=== PATIENT | female | born 1990 | race Caucasian/White ===

== ENCOUNTER → 2016-06-28 | Outpatient (CLI) | payer BC ==
[~2016-06-28] VITALS: Ht 157.5 cm; Wt 54.7 kg
[~2016-06-28] MED LIST: ACETAMINOPHEN325 M1 PO; ALPRAZOLAM 0.50.5 MG PO; AMBIEN 10 MG TA10 MG PO; AMITRIPTYLINE H25 M2 PO; B12INJ IM; BACLOFEN 10MG T10 M1 PO; BACLOFEN 10MG T10 MG PO; BACTRIM 400-801 EACH PO; BACTRIM DS TAB1 EACH PO; BENADRYL25 MG PO; BENTYL 10 MG CA10 M1 PO; BENTYL PO; BENTYL10 MG PO; BUPROPION PO; BUTRANS1 EAC1 TD; CARISOPRODOL 3350 MG PO; CARISOPRODOL350 MG PO; CATAPRES0.1 MG PO; CIMZIA400 MG/2 M SQ; CIPROFLOXACIN500 M1 PO; CIPROFLOXACIN500 M3 PO; COLESTID1 GM PO; COMPAZINE10 M1 PO; CYPROHEPTADINE 44 MG PO; DAZIDOX10 MG PO; DEXILANT30 MG PO; DIPHENHYDRAMINE50 MG PO; ELAVIL PO; ENOXAPARIN30 MG/0.3 SUBQ; FENTANYL 1100 MCG/HR TP; FENTANYL PA25 MCG/HR TD; FENTANYL PA50 MCG/HR TOP; FLAGYL375 MG; FLEXERIL PO; FOLIC ACID 40400 MCG PO; GABAPENTIN PO; GABAPENTIN100 MG PO; GREEN TEA1 EACH PO; HUMIRA40 MG/0.8 IJ; HYDROCODONE-AP1 EAC6 PO; HYDROXYZINE HCL50 MG; HYDROXYZINE HCL50 MG PO; HYOSCYAMINE0.375 M2 PO; IBUPROFEN 600600 M1 PO; IBUPROFEN 800800 M1; JOLESSA1 EACH PO; LASIX 20 MG TAB20 MG PO; LEVONORGESTREL1 EAC1 PO; LIDODERM 5%1 PATCH TOP; LOPERAMIDE 2 MG2 M1 PO; MACROBID 100 M100 M1 PO; MAGNESIUM IV; MERCAPTOPURINE50 MG PO; METHADONE HCL 110 M1 PO; MIRTAZAPINE45 MG; MOBIC7.5 MG PO; MULTI VITAMIN1 EACH PO; MULTIVITAMINS PO; NEURONTIN 300300 M1 PO; NEXIUM40 MG PO; NORCO 5-325 TA1 EACH PO; NYSTATIN 1100000 U/M; NYSTATIN 1100000 U/M PO; ONDANSETRON HCL 8 MG PO; ONDANSETRON HCL4 M2 PO; OXYCODONE HCL 55 MG PO; OXYCONTIN CR 1010 M1 PO; OXYCONTIN10 M1 PO; OXYCONTIN15 MG PO; OXYCONTIN40 MG PO; PERCOCET 5-3251 EACH PO; PHENERGAN 25 MG25 M1 PO; PREDNISONE 10 M10 MG PO; PREDNISONE 5 MG5 M1; PREDNISONE PO; PROBIOTIC1 EACH PO; REGLAN 10 MG TA10 MG PO; REMERON15 MG PO; RISPERDAL 1 MG T1 MG PO; RISPERDAL0.5 MG PO; ROWASA4 GM/60 ML RC; ROWASA4 GM/60 ML RE; TRAMADOL 50 MG50 MG PO; TRANSDERM-SCO1 PATCH TD; TRINATE TABLET1 TAB PO; ULTRAM 50MG TAB50 MG PO; VICODIN 5-5001 EACH; VOLTAREN GEL 1100 GM TOP; WELLBUTRIN 100100 M1 PO; XIFAXAN550 M1 PO; XIFAXAN550 MG PO; ZOFRAN PO; [UNRECOGNIZED DRUG - OTHER]; [UNRECOGNIZED DRUG - OTHER] MC
--- NOTE | ~2016-06-28 | HPC ---
[facility] [place] [address] PAIN MANAGEMENT CONSULTATION Name: HERNANDEZ GARCIA Room #: REG [facility] Evan.#: [id number] Admission: 06/28/16 Attend Phys: Yazmin Foreman MD Discharge: Date of : 91 Report #: [id number] THIS REPORT FOR: //name// CC: Roxana Foreman DATE OF SERVICE: 06/28/2016 FOLLOWUP COMPLAINT: The pain about right. FOLLOWUP HISTORY: The patient is a 25-year-old female who has been followed in the pain clinic. As you recall, she suffers from Crohn's disease. She also has renal stones. She feels that the renal stones improved somewhat. She still feels that there is a stone that is "moving around." She feels that her overall health is reasonably stable. She denies any problems with constipation or any other problems associated with use of the hydrocodone and tramadol. She feels that the gabapentin and cyclobenzaprine are working okay. Overall, the combination has been and continues to be beneficial. She rates her pain as a 0/10 today. She does have some right flank pain. She has noted some occasional blood in her stool. She is going to make an appointment with her GI doctor. She feels she has may has a low grade fever and a small rash on her arm. PHYSICAL EXAMINATION: Blood pressure is 142/82, pulse 111, respiratory rate 14, room air saturation is 100. The patient has pain and discomfort in the usual areas of the left lower quadrant. It is reasonably controlled today. There is no evidence of jaundice. IMPRESSION: 1. Crohn's disease with ileostomy. The patient finds that use of the hydrocodone 5 mg 1 p.o. b.i.d. and tramadol 50 mg b.i.d. is helpful. She hopes to "get off these medications in the company months". She recalls problems that she had in the past with opioids. 2. Right flank pain. The patient notes some "moving around of a stone in her kidney." RECOMMENDATION: We will continue with the patient's hydrocodone 5/325 mg 1 p.o. b.i.d. to help with the "moving kidney stones." We will rewrite her script for tramadol. She will continue with cyclobenzaprine 10 mg b.i.d. as well as gabapentin 300 mg b.i.d. She will call us if she has any problems [place] [address] PAIN MANAGEMENT CONSULTATION Name: HERNANDEZ GARCIA [facility] [id number] Admission: 06/28/16 Attend Phys: Yazmin Foreman MD Discharge: Date of : 91 Report #: [id number] We would like to thank you for letting us participate in her care. We hope she continues to improve. <ELECTRONICALLY SIGNED> By: Yazmin Foreman MD 07/09/16 1018 [id number] Yazmin Foreman MD /nt
[2016-06-28 08:47] VITALS: BP 142/82
== END | disposition home or self-care (01) ==
LOC: PAIN 06:50
DX: K50.90 Crohn's disease, unspecified, without complications (principal); N20.0 Calculus of kidney; Z93.2 Ileostomy status

== ENCOUNTER → 2016-08-28 | Outpatient (CLI) | payer BC ==
[~2016-08-28] VITALS: Ht 157.5 cm; Wt 57.2 kg
--- NOTE | ~2016-08-28 | HPC ---
[facility] [place] [address] [place] [address] PAIN MANAGEMENT CONSULTATION Name: HERNANDEZ GARCIA Room #: REG [facility] Evan.#: [id number] Admission: 08/28/16 Attend Phys: Yazmin Foreman MD Discharge: Date of : 91 Report #: [id number] THIS REPORT FOR: //name// CC: Roxana Foreman DATE OF SERVICE: 08/28/2016 FOLLOWUP COMPLAINT: Dr. Spaulding thinks I should stay on this medicine for a little longer. FOLLOWUP HISTORY: The patient is a 26-year-old female who has been seen and followed in the pain clinic because of chronic pain associated with kidney stones and history of Crohn's disease. She finds that her current medical regimen of hydrocodone, gabapentin and Flexeril have been helpful. She rates her pain as a 5/10. She noticed that she continues to have the right flank pain. She had a " of her upper GI tract on August 09. At that time, she was told that it probably would be good for her to remain on the current medical regimen until October. She has had no complications from the procedure. She does recall having come off her medication" too soon" after which she had a worsening of her pain, which somewhat became much more recalcitrant to control by opioids and her other medications. PHYSICAL EXAMINATION: Blood pressure 114/75, pulse 104, respiratory rate 16, room air saturation is 100%. Height 5 feet 2 inches, weight 57 kilograms. BMI is 23. She continues to have some pain and discomfort in the abdominal area. The left lower quadrant still is somewhat uncomfortable and continues to note pain in the right flank area. IMPRESSION: 1. Crohn's disease with ileostomy. 2. Recent followup with her statistical assistant and is felt that continued use of her opioid medications and current medical regimen would be beneficial and we will consider changing in October. Renal stones, still feels that that might be the cause of the right quadrant pain. RECOMMENDATION: A script for hydrocodone 5/325 one p.o. b.i.d. has been given. The patient will continue with Flexeril to help with muscle spasms. She will also continue with the gabapentin medication. She will call us if she has any problems or notes any changes in her situation. [address] [address] PAIN MANAGEMENT CONSULTATION Name: HERNANDEZ GARCIA Room #: REG [facility] [place]#: [id number] Admission: 08/28/16 Attend Phys: Yazmin Foreman MD Discharge: Date of : 91 Report #: [id number] We would like to thank you for letting us participate in her care. We hope she continues to improve. By: [phone] Yazmin Foreman MD /nt
[2016-08-28 09:15] VITALS: BP 114/75
== END ==
LOC: PAIN 07:22
DX: K50.90 Crohn's disease, unspecified, without complications (principal); Z93.2 Ileostomy status

== ENCOUNTER → 2016-09-27 | Outpatient (CLI) | payer BC ==
[~2016-09-27] VITALS: Ht 157.5 cm; Wt 58.9 kg
--- NOTE | ~2016-09-27 | HPC ---
[facility] [place] [address] PAIN MANAGEMENT CONSULTATION Name: HERNANDEZ GARCIA [facility] [id number] Admission: 09/27/16 Attend Phys: Yazmin Foreman MD Discharge: Date of : 91 Report #: [id number] THIS REPORT FOR: //name// CC: Roxana Foreman DATE OF SERVICE: 09/27/2016 FOLLOWUP COMPLAINT: Here for medication renewal. The pain is about 5. FOLLOWUP HISTORY: The patient is a 26-year-old female who has been followed in the pain clinic because of chronic pain from Crohn's disease. She also has pain, which has been regarding her kidneys. She perceives some pain and discomfort in her left quadrant and sometimes in the right flank as well. Overall, she feels that things are about baseline. She has had less GI complaints. She has noted some increase in back pain. Between the two of , her pain is about stable. She is waiting an opportunity to be treated with additional medications from her GI doctor. She hopes that she will be able to use of opioid medications in the near future. PHYSICAL EXAMINATION: Blood pressure is 122/85, pulse 109, respiratory rate 14, room air saturation is 99%, height 5 feet 2 inches, weight 58 kg, and BMI is 23. IMPRESSION: 1. Crohn's disease with ileostomy. 2. The patient continues to see a gamb cutter regarding changes in medication in the near future. 3. Renal stones. The pain waxes and wanes. She rates her overall pain as a 5 today. RECOMMENDATIONS: We will continue with her current medication regimen of 5 mg hydrocodone p.o. b.i.d. as well as Flexeril to help with the muscle spasms. She will call us if she has any problems with her medications. We would like to thank you for letting us participate in her care. We hope she continues to improve. By: [phone] Yazmin Foreman MD /nt
[2016-09-27 08:41] VITALS: BP 122/85
== END ==
LOC: PAIN 07:12
DX: K50.90 Crohn's disease, unspecified, without complications (principal); N20.0 Calculus of kidney; G89.29 Other chronic pain

== ENCOUNTER → 2016-11-01 | Outpatient (CLI) | payer BC ==
[~2016-11-01] VITALS: Ht 157.5 cm; Wt 55.3 kg
[~2016-11-01] MED LIST changes: +GAS RELIEF180 M1 PO
--- NOTE | ~2016-11-01 | HPC ---
[facility] [place] [address] [place] [address] PAIN MANAGEMENT CONSULTATION Name: HERNANDEZ GARCIA Room #: REG [facility]..#: [id number] Admission: 11/01/16 Attend Phys: Yazmin Foreman MD Discharge: Date of : 91 Report #: [id number] THIS REPORT FOR: //name// CC: PACO Foreman DATE OF SERVICE: 11/01/2016 FOLLOWUP COMPLAINT: "I had my gallbladder taken out because I had a stone and the chest pain is better." FOLLOWUP HISTORY: The patient is a 26-year-old female who has been followed in the pain clinic because of chronic abdominal pain. As you recall, she suffers from Crohn's disease. She had been having some pain and discomfort up in the upper chest area and it was felt to be secondary to her gallbladder. She has turned "yellow." At that time, she underwent a cholecystectomy and was noted to have a stone. She states that things have improved. She is not having chest pain at this point. Pain which she had been having in the lower portion of her back, which she thought was associated with her kidneys has improved as well. She is recuperating from a midline sensation from her cholecystectomy. She is having some pain and discomfort because of this. She would like to continue with her opioid medications at a slight increased level for this month secondary to surgery. PHYSICAL EXAMINATION: Blood pressure 122/79, pulse 108, respiratory rate 16, room air saturation 100%. The patient's height 5 feet 2 inches, weight 55 kg, BMI is 22. The patient has noted improvement in her pain and discomfort. She rates her pain as a 10 with some activity. It has significantly decreased since the removal of the stone in the bile duct area. IMPRESSION: Status post cholecystectomy secondary to stone in bile duct with removal and decreasing bilirubin and enzymes. Crohn's disease with ileostomy, stable. The patient will continue with her current medications and follow up in the near future with her store gift wrap associate, Dr. Spaulding. Renal stone appears stable at this juncture. RECOMMENDATIONS: We will continue for the next month with tramadol 50 mg 1 p.o. b.i.d. and hydrocodone 5 mg 1 p.o. t.i.d. as needed for pain. We would like to thank you for letting us participate in her care. We hope she continues to improve. By: [phone] Yazmin Foreman MD /lakeshia
[2016-11-01 12:36] VITALS: BP 122/79
== END ==
LOC: PAIN 06:36
DX: R10.9 Unspecified abdominal pain (principal); Z90.49 Acquired absence of other specified parts of digestive tract; K50.90 Crohn's disease, unspecified, without complications; Z93.2 Ileostomy status; F32.9 Major depressive disorder, single episode, unspecified

== ENCOUNTER → 2016-11-29 | Outpatient (CLI) | payer BC ==
[~2016-11-29] VITALS: Ht 157.5 cm; Wt 56.7 kg
[~2016-11-29] MED LIST changes: +CLONIDINE0.1 PO
[2016-11-29 09:50] VITALS: BP 115/76
== END | disposition home or self-care (01) ==
LOC: PAIN 06:48
DX: R10.9 Unspecified abdominal pain (principal); K50.90 Crohn's disease, unspecified, without complications; G89.29 Other chronic pain; Z88.8 Allergy status to other drugs, medicaments and biological substances; Z90.49 Acquired absence of other specified parts of digestive tract

== ENCOUNTER → 2017-01-01 | Outpatient (CLI) | payer BC ==
[~2017-01-01] VITALS: Ht 157.5 cm; Wt 58.1 kg
--- NOTE | ~2017-01-01 | HPC ---
[facility] [place] [address] [place] [address] PAIN MANAGEMENT CONSULTATION Name: HERNANDEZ GARCIA Room #: REG [facility] Evan.#: [id number] Admission: 01/01/17 Attend Phys: Yazmin Foreman MD Discharge: Date of : 91 Report #: [id number] THIS REPORT FOR: //name// CC: Roxana Foreman DATE OF SERVICE: 01/01/2017 FOLLOWUP COMPLAINT: I am ready to decrease my hydrocodone again. FOLLOWUP HISTORY: The patient is a 26-year-old female who has been followed in the pain clinic because of chronic pain associated with Crohn's disease. She also has had problems with renal stones. At this juncture, things are going reasonably well. She finds that her pain is reasonably controlled and rates it as a 0 today. She would like to continue decreasing her hydrocodone medication. We will decrease it from 2 tablets of 5 mg t.i.d. to one 5 mg tablet per day. She will also continue with clonidine 0.1 mg p.o. b.i.d. and tramadol. IMPRESSION: 1. Status post cholecystectomy with continued improvement in the abdominal pain. Ileostomy, stable. 2. Chronic Crohn's disease. 3. Renal stones stable. RECOMMENDATIONS: A script for hydrocodone 5 mg 1 p.o. q. day, clonidine 0.1 mg b.i.d. have been written. We would like to thank you for letting us participate in her care. We hope she continues to improve. <ELECTRONICALLY SIGNED> By: Yazmin Foreman MD 01/02/17 0822 [id number] Yazmin Foreman MD /nt
[2017-01-01 09:21] VITALS: BP 126/83
== END | disposition home or self-care (01) ==
LOC: PAIN 06:37
DX: Z76.0 Encounter for issue of repeat prescription (principal); R10.9 Unspecified abdominal pain; K50.90 Crohn's disease, unspecified, without complications; N20.0 Calculus of kidney; Z90.49 Acquired absence of other specified parts of digestive tract

== ENCOUNTER → 2017-01-29 | Outpatient (CLI) | payer BC ==
[~2017-01-29] VITALS: Ht 157.5 cm; Wt 60.4 kg
[~2017-01-29] MED LIST changes: +REMICADE 1100 MG/VIA
--- NOTE | ~2017-01-29 | HPC ---
[facility] [place] [address] [place] [address] PAIN MANAGEMENT CONSULTATION Name: HERNANDEZ GARCIA [facility] [id number] Admission: 01/29/17 Attend Phys: Yazmin Foreman MD Discharge: Date of : 91 Report #: [id number] THIS REPORT FOR: //name// CC: Roxana Foreman DATE OF SERVICE: 01/29/2017 FOLLOWUP COMPLAINT: Pain control was going pretty well. FOLLOWUP HISTORY: The patient is a 26-year-old female who has been followed in the pain clinic. As you recall, she has Crohn's disease. She also has problems with renal stones. She has been doing reasonably well in the last few months. She rates her pain today as a 0. She continues to use 1 hydrocodone per day. She is not having any abdominal complications. At this juncture, she would like to use tramadol and note its efficacy. She feels that the clonidine continues to be helpful. PHYSICAL EXAMINATION: Blood pressure 108/73, pulse 103, respiratory rate 14, room air saturation 98%. Height is 5 feet 2 inches, weight 133 pounds, BMI is 24. She finds that the abdominal pain is controlled today. She continues to have an ostomy bag in place. IMPRESSION: 1. History of abdominal pain with Crohn's disease -- stable. 2. Renal stones -- stable. RECOMMENDATIONS: We will continue with clonidine 0.1 mg b.i.d. She will stop hydrocodone and try and note the efficacy of tramadol 50 mg 1 p.o. b.i.d. She will call us if she has any problems. We would like to thank you for letting us participate in her care. We hope she continues to improve. By: [phone] Yazmin Foreman MD /
[2017-01-29 09:29] VITALS: BP 108/73
== END | disposition home or self-care (01) ==
LOC: PAIN 07:22
DX: K50.90 Crohn's disease, unspecified, without complications (principal); N20.0 Calculus of kidney; Z79.899 Other long term (current) drug therapy; Z98.890 Other specified postprocedural states